=== PATIENT | male | born 1975 | race Caucasian/White ===

== ENCOUNTER 2023-07-01 14:08 | Emergency (ER) | payer BC ==
--- NOTE | 2023-07-01 15:46 | RAD REPORT ---
EXAM DESCRIPTION: Dany Kennedy (2 Views)07/01/2023 3:29 pm CLINICAL HISTORY: Chest pain COMPARISON: None FINDINGS: The lungs appear clear of acute infiltrate. The heart is normal size IMPRESSION: No acute abnormalities displayed
[2023-07-01 15:59] LABS: Absolute Lymphocytes (CBC) 1.2 K/uL (0.7-4.9); Hematocrit 51.6 % (39.6-49.0); Lymphocytes % 11.3 % (15.3-44.8); MCV 93.3 fL (80-100); MPV 9.9 fL (7.6-11.3); Platelets 195 thou/uL (152-406); RBC Red Blood Cell Count 5.53 M/uL (4.33-5.43)
[2023-07-01 16:01] LABS: Protime INR 0.97
[2023-07-01] MEDS ORDERED: PANTOPRAZOLE 40MG TABLET PO ONE (16:06)
[2023-07-01] MEDS ORDERED: ONDANSETRON 4 MG/2 ML VIAL ONE (16:06)
[2023-07-01] MEDS ORDERED: MAGNES/ALUMIN/SIMET 30ML UCUP ONE (16:06)
[2023-07-01 16:21] LABS: ALT/SGPT 63 U/L (16-61); AST/SGOT 50 U/L (15-37); Albumin 4.3 g/dL (3.4-5.0); Alkaline Phosphatase 77 U/L (45-117); BUN Blood Urea Nitrogen 19 mg/dL (7-18); Bicarbonate 29 mEq/L (21-32); Bilirubin Direct 0.4 mg/dL (0-0.2); Bilirubin Indirect, Calculated 1.6 mg/dL (0.2-0.8); Glomerular Filtration Rate 70 ml/min (=/>90); Glucose Level 123 mg/dL (74-106); NT PRO-BNP < 5 pg/mL (<125); Potassium 3.4 mEq/L (3.5-5.1); Sodium Level 133 mEq/L (136-145); Troponin High Sensitivity 7.3 pg/mL (<58.9)
[2023-07-01] MEDS ORDERED: NA CHLORIDE 0.9% 1,000 ML ONE (16:21)
--- NOTE | 2023-07-01 17:06 | RAD REPORT ---
EXAM DESCRIPTION: CT - Chest Abdomen Pelvis W Cont - 07/01/2023 4:42 pm CLINICAL HISTORY: Chest and abdominal pain. Vomiting COMPARISON: none TECHNIQUE: Computed axial tomography of the chest, abdomen and pelvis was obtained. 100 cc Isovue-30 0 was administered intravenously. Oral contrast was not requested. This limits evaluation of bowel. All CT scans are performed using dose optimization technique as appropriate and may include automated exposure control or mA/KV adjustment according to patient size. FINDINGS: Calcified granuloma left lung. Calcified mediastinal and calcified hilar lymph nodes are present. No pleural effusion. No pericardial effusion. Fatty infiltration liver. Biliary tree is normal caliber. Splenic granulomata. Pancreas, adrenals and kidneys unremarkable No evidence of diverticulitis Normal appendix. Small inguinal hernias contain fat IMPRESSION: Fatty infiltration liver
--- NOTE | 2023-07-01 17:09 | RAD REPORT ---
EXAM DESCRIPTION: US - Abdomen Exam Limited - 07/01/2023 4:39 pm CLINICAL HISTORY: Abdominal pain. COMPARISON: None. FINDINGS: The patient had recently eaten limiting evaluation The gallbladder is contracted. A gallstone is not seen. Gallbladder wall does not appear thickened The biliary tree is normal caliber. IMPRESSION: Grossly normal gallbladder ultrasound
--- NOTE | 2023-07-01 17:44 | EDPHYS ---
Physician Documentation [facility] Name: Ketan Abdi Age: 48 yrs Sex: Male : 1975 Arrival Date: 07/01/2023 Time: 14:08 Bed DIS3 Private MD: ED Physician Pierre Yeung HPI: 07/01 15:14 This 48 yrs old Male presents to ER via Ambulatory with complaints of Vomiting, Hiccups.rn 15:14 The patient presents to the emergency department with nausea, vomiting. Onset: The rn symptoms/episode began/occurred 2 week(s) ago. Possible causes: unknown. The symptoms are aggravated by food , The symptoms are alleviated by nothing. Severity of symptoms: At their worst the symptoms were moderate in the emergency department the symptoms are unchanged. The patient has experienced a previous episode. The patient has not recently seen a physician. Pt reports nausea and vomiting with hiccups. All started approx 1 month ago, got better, now back. No fever. No blood in emesis. NO blood in stool. No blood thinners. Smokes and drinks ETOH. Pt reports can swallow but sometimes has trouble with food. Doesn't feel like anything is stuck at this time. . Historical: - Allergies: 14:21 No Known Allergies; cm10 - PMHx: 14:21 Hypertensive disorder; hyperlipidemia; cm10 - Immunization history:: Adult Immunizations up to date. - Social history:: Smoking status: Patient denies any tobacco usage or history of. - Family history:: not pertinent. - Hospitalizations: : No recent hospitalization is reported. ROS: 15:14 Constitutional: Negative for fever, chills, and weight loss, Eyes: Negative for injury, rn pain, redness, and discharge, Neck: Negative for injury, pain, and swelling, Cardiovascular: Negative for palpitations, and edema, Respiratory: Negative for shortness of breath, cough, wheezing, and pleuritic chest pain, Abdomen/GI: Negative for abdominal pain, diarrhea, and constipation, MS/Extremity: Negative for injury and deformity, Skin: Negative for injury, rash, and discoloration, Neuro: Negative for headache, weakness, numbness, tingling, and seizure. Exam: 15:14 Constitutional: This is a well developed, well nourished patient who is awake, alert, rn appears anxious and persistent hiccups. Head/Face: Normocephalic, atraumatic. Cardiovascular: Tachycardic, regular. Respiratory: No increased work of breathing, no retractions or nasal flaring. Abdomen/GI: Soft, non-tender Skin: Warm, dry MS/ Extremity: Pulses equal, no cyanosis. Neuro: Awake and alert, GCS 15 15:42 ECG was reviewed by the Attending Physician. rn Vital Signs: 14:17 BP 127 / 100; Pulse 115; Resp 18; Temp 97.7; Pulse Ox 100% ; Weight 104.33 kg; Height 5 cm10 ft. 11 in. ; Pain 7/10; 14:17 Body Mass Index 32.08 (104.33 kg, 180.34 cm) cm10 14:17 Pain Scale: Adult cm10 MDM: 14:22 Patient medically screened. rn 14:36 ED course: Performed breath stacking technique with patient, and hiccups stopped. rn Patient happy. Story sounds like esophagitis or spasm with GERD. Will rule out emergent cause and anticipate dc home with GI f/u and antacids. Urged to stop chewing tobacco and drinking as increasing his change of cancer. . 17:16 Differential diagnosis: Nonspecific abd pain, gastritis, viral gastroenteritis, rn gastroenteritis. 17:42 Data reviewed: vital signs, nurses notes, lab test result(s), radiologic studies, CT rn scan, plain films, ultrasound, and as a result, I will discharge patient. Counseling: I had a detailed discussion with the patient and/or guardian regarding the historical points, exam findings, and any diagnostic results supporting the discharge/admit diagnosis, lab results, radiology results, the need for outpatient follow up, to return to the emergency department if symptoms worsen or persist or if there are any questions or concerns that arise at home. Special discussion: I discussed with the patient/guardian in detail that at this point there is no indication for admission to the hospital. It is understood, however, that if the symptoms persist or worsen the patient needs to return immediately for re-evaluation. Based on the history and exam findings, there is no indication for further emergent testing or inpatient evaluation. I discussed with the patient/guardian the need to see the intelligence agent for further evaluation of the symptoms. 07/01 14:34 Order name: Basic Metabolic Panel; Complete Time: 16:22 rn 07/01 14:34 Order name: CBC with Diff; Complete Time: 16:03 rn 07/01 14:34 Order name: LFT's; Complete Time: 16:22 rn 07/01 14:34 Order name: NT PRO-BNP; Complete Time: 16:22 rn 07/01 14:34 Order name: PT-INR; Complete Time: 16:03 rn 07/01 14:34 Order name: Troponin HS; Complete Time: 16:22 rn 07/01 15:31 Order name: Chest Pa And Lat (2 Views); Complete Time: 15:47 EDMS 07/01 16:23 Order name: US Abdomen Limited; Complete Time: 17:09 rn 07/01 16:44 Order name: Chest Abdomen Pelvis W Cont; Complete Time: 17:09 EDMS 07/01 14:34 Order name: EKG; Complete Time: 14:34 rn 07/01 14:34 Order name: EKG - Nurse/Tech; Complete Time: 14:36 rn 07/01 14:34 Order name: IV Saline Lock; Complete Time: 15:51 rn 07/01 14:34 Order name: Labs collected and sent; Complete Time: 15:51 rn EC:42 Rate is 122 beats/min. Rhythm is regular. QRS [place] is Normal. CA interval is normal. rn QRS interval is normal. No Q waves. T waves are Normal. No ST changes noted. Clinical impression: Sinus tachycardia. Reviewed by me. Administered Medications: 15:59 Drug: GI Cocktail without - (Maalox PO Suspension 30 ml, Lidocaine Mucous cm10 Membrane Liquid 2 % 15 ml) Route: PO; 15:59 Drug: Pantoprazole PO 40 mg Route: PO; cm10 15:59 Drug: Ondansetron IVP 4 mg Route: IVP; Site: right forearm; cm10 16:26 Drug: NS 0.9% IV 1000 ml Route: IV; Rate: 1000 ml; Site: right forearm; hb Disposition Summary: 07/01/23 17:43 Discharge Ordered Location: Home rn Problem: new rn Symptoms: have improved rn Condition: Stable rn Diagnosis - Gastro-esophageal reflux disease with esophagitis rn - Fatty (change of) liver, not elsewhere classified rn - [place] rn Followup: rn - With: Liu Harris MD - When: As needed - Reason: Recheck today's complaints, Re-evaluation by your physician Discharge Instructions: - Discharge Summary Sheet rn - Food Choices for Gastroesophageal Reflux Disease, Adult rn - Esophagitis rn - Gastroesophageal Reflux Disease, Adult rn - Hiccups rn - Indigestion rn Forms: - Medication Reconciliation Form rn - Thank You Letter rn - Antibiotic administration intern - Prescription Opioid Use rn - Patient Portal Instructions rn - Leadership Thank You Letter rn Prescriptions: - Protonix 40 mg Oral Tablet - take 1 tablet by ORAL route once daily; 30 tablet; Refills: 0, Product rn Selection Permitted Signatures: Dispatcher [employer] EDMS Pierre Yeung MD MD rn Baxter, Heather, RN RN hb Martinez, Clarissa RN RN cm10 Corrections: (The following items were deleted from the chart) 15:30 14:34 Chest Single View+RAD.RAD.BRZ ordered. EDMS EDMS 16:44 16:24 Abdomen Pelvis W Con+CT.RAD.BRZ ordered. EDMS EDMS
--- NOTE | 2023-07-01 17:44 | ER ---
Nurse's Notes [facility] Name: Ketan Abdi Age: 48 yrs Sex: Male : 1975 Arrival Date: 07/01/2023 Time: 14:08 Bed DIS3 Private MD: Diagnosis: Gastro-esophageal reflux disease with esophagitis;Fatty (change of) liver, not elsewhere classified;Hiccough Presentation: 07/01 14:17 Chief complaint: Patient states: "I have hiccups and vomiting that started on Tuesday. I cm10 had it a month ago and it lasted for 2 weeks then went away.". Coronavirus screen: Vaccine status: Patient reports being unvaccinated. Client denies travel out of the [place] in the last 14 days. Ebola Screen: Patient denies travel to an Ebola-affected area in the 21 days before illness onset. No symptoms or risks identified at this time. Initial Sepsis Screen: Does the patient meet any 2 criteria? HR > 90 bpm. Does the patient have a suspected source of infection? No. Patient's initial sepsis screen is negative. Risk Assessment: Do you want to hurt yourself or someone else? Patient reports no desire to harm self or others. Onset of symptoms was June 27, 2023. 14:17 Method Of Arrival: Ambulatory cm10 14:17 Acuity: DAYSI 3 cm10 Triage Assessment: 14:22 General: Appears in no apparent distress. comfortable, Behavior is calm, cooperative. cm10 Historical: - Allergies: 14:21 No Known Allergies; cm10 - PMHx: 14:21 Hypertensive disorder; hyperlipidemia; cm10 - Immunization history:: Adult Immunizations up to date. - Social history:: Smoking status: Patient denies any tobacco usage or history of. - Family history:: not pertinent. - Hospitalizations: : No recent hospitalization is reported. Vital Signs: 14:17 BP 127 / 100; Pulse 115; Resp 18; Temp 97.7; Pulse Ox 100% ; Weight 104.33 kg; Height 5 cm10 ft. 11 in. ; Pain 7/10; 14:17 Body Mass Index 32.08 (104.33 kg, 180.34 cm) cm10 14:17 Pain Scale: Adult cm10 ED Course: 14:12 Patient arrived in ED. rg4 14:21 Triage completed. cm10 14:22 Pierre Yeung MD is Attending Physician. rn 14:22 Arm band placed on Patient placed in waiting room. cm10 15:31 Chest Pa And Lat (2 Views) In Process Unspecified. EDMS 15:51 CBC with Diff Sent. cm10 15:51 Basic Metabolic Panel Sent. cm10 15:51 LFT's Sent. cm10 15:51 NT PRO-BNP Sent. cm10 15:51 PT-INR Sent. cm10 15:51 Troponin HS Sent. cm10 15:51 Initial lab(s) drawn, by wy, sent to lab. Inserted saline lock: 20 gauge in right cm10 forearm, using aseptic technique. Blood collected. 16:01 Nubia Houston, RN is Primary Nurse. jl7 16:41 US Abdomen Limited In Process Unspecified. EDMS 16:44 Chest Abdomen Pelvis W Cont In Process Unspecified. EDMS 17:43 Liu Harris MD is Referral Physician. rn Administered Medications: 15:59 Drug: GI Cocktail without - (Maalox PO Suspension 30 ml, Lidocaine Mucous cm10 Membrane Liquid 2 % 15 ml) Route: PO; 15:59 Drug: Pantoprazole PO 40 mg Route: PO; cm10 15:59 Drug: Ondansetron IVP 4 mg Route: IVP; Site: right forearm; cm10 16:26 Drug: NS 0.9% IV 1000 ml Route: IV; Rate: 1000 ml; Site: right forearm; hb Outcome: 17:43 Discharge ordered by . rn 18:03 Patient left the ED. hb Signatures: Dispatcher [employer] EDMS Pierre Yeung MD MD rn Baxter, Heather RN RN Paty Anderson rg4 Nubia Houston, RN RN jl7 Glenis Webb, RN RN cm10
[2023-07-01 18:19] VITALS: BP 127/100; TEMP 97.7; O2SAT 100
--- NOTE | 2023-07-03 15:09 | EKG ---
Test Date: 2023-07-01 Test Time: 14:29:34 [employer] Registrar: LINA MEASUREMENT RESULTS: Intervals: Rate: 122 WA: 126 QRSD: 84 QT: 306 QTc: 436 [place]: P: 62 WA: 126 QRS: 27 T: -79 INTERPRETIVE STATEMENTS: Sinus tachycardia ST & T wave abnormality, consider inferior ischemia Abnormal ECG No previous ECG available for comparison Electronically Signed On 07-03-23 15:06:40 CDT by Fawad Fernandez
== END 2023-07-01 18:03 | disposition home or self-care (01) ==
LOC: ER 14:08
DX: K21.00 Gastro-esophageal reflux disease with esophagitis, without bleeding (principal); K76.0 Fatty (change of) liver, not elsewhere classified; R06.6 Hiccough; I10 Essential (primary) hypertension
CPT/HCPCS: 93005; 85025; 80048; 36415; 85610; 80076; 84484; 83880; 71260; 74177; 71046; 76705; 96374; 99284; Q9967; J2405; J7030